=== PATIENT | female | born 1975 | race Caucasian/White ===

== ENCOUNTER 2017-04-12 22:53 | Emergency (ER) | payer OTHER ==
[2017-04-12 23:03] VITALS: BP 134/67; PULSE 83; TEMP 98.2; BMI 26.6
[2017-04-12] MEDS ORDERED: SODIUM CHLORIDE 500 ML IV STA (23:37)
--- NOTE | 2017-04-12 23:38 | PDOC ---
Attending Attestation - Resident Resident Name: Porsha Perea - ED Attending Attestation I have performed the following: I have examined & evaluated the patient, The case was reviewed & discussed with the resident, I agree w/resident's findings & plan, Exceptions are as noted - HPI HPI: 04/12/17 23:35 R Hand/wrist decreased motor strength and altered sense of touch/ - Physicial Exam PE: 04/12/17 23:37 Decreased motor strength and altered sense of touch- like as if she hit her funny bone-started four days ago - Medical Decision Making 04/12/17 23:[address] Perea Assessment and Plan <Ruben Renae - Last Filed: 04/12/17 23:35> - HPI HPI: 04/13/17 00:21 Pt is a 41 year old female, with a significant past medical history of breast cancer and pneumonia, who presents to the emergency department with sudden onset of numbness to the right hand extending to the elbow for approximately 4 days. - Medical Decision Making 04/13/17 00:21 Documentation prepared by Marcia Bah, acting as clinical specialist medical device for Ruben Renae DO. <Marcia Bah - Last Filed: 04/13/17 00:21>
[2017-04-13 00:15] LABS: MCH 29.1 pg (25.7-33.7); MEAN CELL VOLUME 83.2 fl (80-96); PLATELET COUNT 200 K/MM3 (134-434); RDW 12.8 % (11.6-15.6); WHITE BLOOD COUNT 4.8 K/mm3 (4.0-10.0)
[2017-04-13 00:16] LABS: URINE APPEARANCE CLEAR; URINE BILIRUBIN NEGATIVE (NEGATIVE); URINE BLOOD NEGATIVE (NEGATIVE); URINE COLOR YELLOW; URINE GLUCOSE (UA) NEGATIVE (NEGATIVE); URINE KETONE TRACE (NEGATIVE); URINE NITRITE NEGATIVE (NEGATIVE); URINE PROTEIN NEGATIVE (NEGATIVE); URINE UROBILINOGEN 0.2 mg/dL (0.2-1.0)
--- NOTE | 2017-04-13 00:16 | PDOC ---
History of Present Illness - General Chief Complaint: CVA/TIA Stated Complaint: RT WRIST PAIN Time Seen by Provider: 04/12/17 23:16 History Source: Patient Exam Limitations: No Limitations - History of Present Illness Initial Comments: 04/13/17 00:06 Patient is a 41 yo F with a PMHx of Anxiety, Breast ca (s/p resection 2009), fibromyalgia, and chronic pain (on methadone), presented to the ED because of sudden onset, right wrist weakness/drop, diffuse numbness and tingling that extends right before the elbow, that started Wednesday night and progressively got worse. She wasn't doing anything when the weakness occurred. She says describes the tingling as "funny bone tingling". She says she isn't able to extend or flex her wrist. She denies trauma to the hand, associated pain, headache, slurred speech, LOC, dizziness, nausea, vomiting and SOB. Past History - Past Medical History Allergies/Adverse Reactions: Allergies Allergy/AdvReac Type Severity Reaction Status Date / Time No Known Allergies Allergy Verified 04/12/16 12:18 Home Medications: Ambulatory Orders Clonazepam [Klonopin] 5 mg PO DAILY 04/13/17 Fluoxetine HCl [Prozac] 40 mg PO DAILY 04/13/17 Methadone [Dolophine -] 5 mg PO DAILY 04/13/17 Anemia: No Asthma: No Cancer: Yes (Right Breast-had chemo, 5 years ago) Cardiac Disorders: No CVA: No COPD: No CHF: No Dementia: No Diabetes: No GI Disorders: No Disorders: No HTN: No Hypercholesterolemia: No Liver Disease: No Seizures: No Thyroid Disease: No - Surgical History Abdominal Surgery: No Appendectomy: No Cardiac Surgery: No Cholecystectomy: No Lung Surgery: No Neurologic Surgery: No Orthopedic Surgery: No - Suicide/Smoking/Psychosocial Hx Smoking History: Never smoked Have you smoked in the past 12 months: No Hx Alcohol Use: No Drug/Substance Use Hx: Yes ([facility]) Substance Use Type: Marijuana Hx Substance Use Treatment: No Review of Systems - Review of Systems Able to Perform ROS?: Yes Is the patient limited Armenian proficient: No Constitutional: No: Chills, Diaphoresis, Fever HEENTM: No: Recent change in vision, Double Vision, Throat Pain Respiratory: No: Cough, Shortness of Breath, Wheezing Cardiac (ROS): No: Chest Pain, Palpitations ABD/GI: No: Diarrhea, Nausea, Vomiting : No: Burning, Dysuria Musculoskeletal: Yes: Joint Pain, Joint Swelling, Muscle Weakness *Physical Exam - Vital Signs Last Vital Signs Temp Pulse Resp BP Pulse Ox 98.2 F 83 18 134/67 97 04/12/17 22:56 04/12/17 22:56 04/12/17 22:56 04/12/17 22:56 04/12/17 22:56 - Physical Exam Comments: 04/13/17 02:03 General: Patient is in no acute distress. Patient is alert, attentive and oriented. SPeech is clear and fluent with good repition, comprehension and naming. HEENT: anicteric, conjunctiva clear, PERRL, EOMI CV: RRR, No murmurs appreciated Lung: CTA b/l Abd: NT, ND, normoactive bowel sounds Neuro: face is symmetric with normal eye closure and smile, head turning and shoulder shrug intact, symmetric face, no pronator drift, Reflexes are 2+, symmetric at biceps and knees. Sensation intact b/l/. Normal gait. Ext: Right wrist- 1/5 strength on flexion and extension. decreased sensation compared to the left wrist. Able to move and flex left hand digits. Right and left elbow 5/5 strength, sensation intact b/l ED Treatment Course - LABORATORY CBC & Chemistry Diagram: 04/13/17 00:01 04/13/17 00:01 - RADIOLOGY Radiology Studies Ordered: Category Date Time Status CERVICAL SPINE CT W/O CONTR [CT] Stat CT Scan 04/12/17 23:[address] (STROKE) [CT] Stat CT Scan 04/12/17 23:35 Ordered CHEST X-RAY PORTABLE* [RAD] Stat Radiology 04/12/17 23:37 Taken Medical Decision Making - Medical Decision Making 04/13/17 02:09 #Wrist weakness/drop CBC, CMP, U Preg U/A EKG C Spine CT- unremarkable Head CT- unremarkable for acute bleeding IV fluids 04/13/17 02:11 Discussed case with Neurology (Dr. Vasquez), does not feel its emergent. Recommends outpatient follow up. Patient will be discharged with referral to Dr. Vasquez *DC/Admit/Observation/Transfer Diagnosis at time of Disposition: Weakness of wrist - Discharge Dispostion Disposition: HOME Admit: No - Referrals Referrals: Royal Beckwith [Primary Care Provider] - Jayesh Vasquez MD [Staff Physician] - 1 week - Patient Instructions Additional Instructions: Please make an appointment with a neurologist this week. If you feel your symptoms are worsening, please call your doctor or go to your nearest emergency room.
[2017-04-13] MEDS ORDERED: ACETAMINOPHEN 325 MG TABLET (FP) PO ONE (00:34)
[2017-04-13 01:31] LABS: ALBUMIN 3.5 g/dl (3.4-5.0); ANION GAP 10 (8-16); CALCIUM 8.4 mg/dL (8.5-10.1); CO2 27 mmol/L (21-32); CREATININE 0.9 mg/dL (0.55-1.02); GLUCOSE,RANDOM 108 mg/dL (74-106); SGOT/AST 10 U/L (15-37); SGPT/ALT 16 U/L (12-78)
[2017-04-13 01:33] LABS: ALK PHOS 72 U/L (45-117); BILIRUBIN,TOTAL 0.2 mg/dL (0.2-1.0); TOT PROT 6.5 g/dl (6.4-8.2)
[2017-04-13 09:51] LABS: URINE LEUK ESTERASE Negative (NEGATIVE)
--- NOTE | 2017-04-16 11:26 | EKG ---
Test Reason : Blood Pressure : / mmHG Vent. Rate : 061 BPM Atrial Rate : 061 BPM P-R Int : 146 ms QRS Dur : 088 ms QT Int : 418 ms P-R-T Axes : 024 021 016 degrees QTc Int : 420 ms NORMAL SINUS RHYTHM CANNOT RULE OUT ANTERIOR INFARCT , AGE UNDETERMINED NONSPECIFIC T WAVE ABNORMALITY NO PREVIOUS ECGS AVAILABLE Confirmed by ELISABETH CASTRO MD ([id number]) on 04/16/2017 11:25:42 AM Referred By: Confirmed By:ELISABETH CASTRO MD
== END 2017-04-13 02:43 | disposition home or self-care (01) ==
LOC: JER 22:53
PROC: 3E0337Z Introduction of Electrolytic and Water Balance Substance into Peripheral Vein, Percutaneous Approach (ICD-10-PCS; principal; 2017-04-12)
DX: R53.1 Weakness (principal); M21.331 Wrist drop, right wrist; M79.7 Fibromyalgia; F41.9 Anxiety disorder, unspecified; Z85.3 Personal history of malignant neoplasm of breast
CPT/HCPCS: 70450-TC; 71010-TC; 72125-TC; 80053; 81003; 84703; 93005; 93010; 96360; 99285-25

== ENCOUNTER 2021-09-22 07:50 | Day surgery (SDC) | payer OTHER ==
[2021-09-17 11:50] VITALS: BMI 31.3
[2021-09-22] MEDS ORDERED: oxyCODONE HCL 5 MG TABLET PO PRN ×2 (07:52)
[2021-09-22] MEDS ORDERED: ceFAZolin SODIUM 1 GM VIAL ONE (07:52)
[2021-09-22] MEDS ORDERED: PROPOFOL 20 ML ONE ×4 (07:52→09:16)
[2021-09-22] MEDS ORDERED: DEXAMETHASONE SOD PHOSPHATE 4 MG/1 ML VIAL ONE (07:52)
[2021-09-22] MEDS ORDERED: MIDAZOLAM HCL 2 MG/2 ML SINGLE DOSE VIAL ONE (07:52)
[2021-09-22] MEDS ORDERED: KETOROLAC TROMETHAMINE 30 MG/1 ML VIAL ONE (07:52)
[2021-09-22] MEDS ORDERED: LIDOCAINE HCL/PF 2% SDV 5ML VIAL ONE (07:52)
[2021-09-22] MEDS ORDERED: ONDANSETRON 4 MG/2 ML VIAL IVPUSH PRN (07:52)
[2021-09-22] MEDS ORDERED: LACTATED RINGERS SOLUTION 1,000 ML IV SCH (08:00)
[2021-09-22] MEDS ORDERED: ceFAZolin SODIUM 1 GM VIAL IVPB ONE (08:25)
[2021-09-22] MEDS ORDERED: HYDROmorphone HCl 2 MG/ML VIAL ONE (08:29)
[2021-09-22] MEDS ORDERED: BUPIVACAINE HCL/PF 0.5% (5MG/ML) 10 ML VIAL ONE (08:31)
[2021-09-22] MEDS ORDERED: BUPIVACAINE HCL/PF 0.5% (5MG/ML) 10 ML VIAL IJ ONE (08:36)
[2021-09-22] MEDS ORDERED: ROCURONIUM BROMIDE 50 MG/5 ML SYRINGE ONE (09:26)
[2021-09-22 16:47] VITALS: PULSE 68; TEMP 97.8
[2021-09-22 17:01] VITALS: BP 140/78
== END 2021-09-22 13:30 | disposition home or self-care (01) ==
LOC: JASU-SURG 07:50
PROVIDERS: ATTEND Plastic Surgery
PROC: 0HPT0JZ Removal of Synthetic Substitute from Right Breast, Open Approach (ICD-10-PCS; 2021-09-22)
PROC: 0HRV0JZ Replacement of Bilateral Breast with Synthetic Substitute, Open Approach (ICD-10-PCS; 2021-09-22)
PROC: 0HPU0JZ Removal of Synthetic Substitute from Left Breast, Open Approach (ICD-10-PCS; principal; 2021-09-22 08:00)
DX: T85.898A Other specified complication of other internal prosthetic devices, implants and grafts, initial encounter (principal); Z85.3 Personal history of malignant neoplasm of breast
CPT/HCPCS: 19342; 19371; L8600; 81025; 88300-TC; 88305-TC; 94760

== ENCOUNTER 2021-10-06 15:42 | Emergency (ER) | payer OTHER ==
[2021-10-06 16:15] VITALS: BP 132/80; PULSE 90; TEMP 98; BMI 32.3
[2021-10-06] MEDS ORDERED: DIPHTH,PERTUSS(ACELL),TET 0.5 ML DISP.SYRIN IM ONE ×2 (16:15→16:25)
[2021-10-06] MEDS ORDERED: LIDOCAINE 1%/EPI 1:100000 (20 ML MULTI DOSE VIAL) IJ ONE (17:02)
[2021-10-06] MEDS ORDERED: LIDOCAINE 1%/EPI 1:100000 (20 ML MULTI DOSE VIAL) ONE (17:06)
[2021-10-06] MEDS ORDERED: CLINDAMYCIN 900 MG PREMIX IVPB 900 MG/50 ML BAG IVPB ONE (17:38)
== END 2021-10-06 17:57 | disposition home or self-care (01) ==
LOC: JER 15:42
PROC: 3E0234Z Introduction of Serum, Toxoid and Vaccine into Muscle, Percutaneous Approach (ICD-10-PCS; principal; 2021-10-06)
DX: N61.1 Abscess of the breast and nipple (principal)
CPT/HCPCS: 87070; 87186; 87205; 90471; 90715; 99285-25

== ENCOUNTER 2025-03-23 10:36 | Day surgery (SDC) | payer OTHER ==
[2025-03-20 14:53] VITALS: BMI 27.4
[2025-03-23 11:01] VITALS: TEMP 97.5
[2025-03-23] MEDS ORDERED: BUPIVACAINE HCL/PF 0.25% (2.5MG/ML) 10 ML VIAL ONE (11:18)
[2025-03-23] MEDS ORDERED: PROPOFOL 20 ML ONE ×3 (11:36→12:20)
[2025-03-23] MEDS ORDERED: LIDOCAINE HCL/PF 2% SDV 5ML VIAL ONE (11:36)
[2025-03-23] MEDS ORDERED: MIDAZOLAM HCL 2 MG/2 ML SINGLE DOSE VIAL ONE ×2 (11:36→12:15)
[2025-03-23] MEDS ORDERED: ONDANSETRON 4 MG/2 ML VIAL IVPUSH PRN (11:54)
[2025-03-23] MEDS ORDERED: ACETAMINOPHEN INJECTION 100 ML ONE (11:56)
[2025-03-23] MEDS ORDERED: LACTATED RINGERS SOLUTION 1,000 ML IV SCH (12:00)
[2025-03-23] MEDS ORDERED: DEXAMETHASONE SOD PHOSPHATE 4 MG/1 ML VIAL ONE (12:25)
[2025-03-23] MEDS ORDERED: ONDANSETRON 4 MG/2 ML VIAL ONE (13:07)
[2025-03-23] MEDS ORDERED: KETOROLAC TROMETHAMINE 30 MG/1 ML VIAL IM PRN (14:09)
[2025-03-23] MEDS ORDERED: KETOROLAC TROMETHAMINE 30 MG/1 ML VIAL IVPUSH PRN (14:14)
[2025-03-23 16:23] VITALS: RESP 17
[2025-03-23 16:29] VITALS: BP 135/78; PULSE 75
== END 2025-03-23 15:30 | disposition home or self-care (01) ==
LOC: FASU 10:36
PROVIDERS: ATTEND Plastic Surgery
PROC: 0HPT0NZ Removal of Tissue Expander from Right Breast, Open Approach (ICD-10-PCS; principal; 2025-03-23 12:34)
DX: Z85.3 Personal history of malignant neoplasm of breast (principal); M62.48 Contracture of muscle, other site; N65.1 Disproportion of reconstructed breast
CPT/HCPCS: 81025; 94760; C1789